=== PATIENT | female | born 1965 | race Hispanic/Latino ===

== ENCOUNTER → 2019-06-05 | Day surgery (SDC) | payer OTHER ==
[2019-06-04 11:49] LABS: BASOPHILS % 0.6 % (0.0-1.0); EOSINOPHILS # (AUTO) 0.2 (0.0-0.4); EOSINOPHILS % 3.1 % (0.0-6.0); HEMATOCRIT 26.6 % (34.2-44.1); LYMPHOCYTES # (AUTO) 1.6 (1.0-3.2); LYMPHOCYTES % 21.6 % (18.0-39.1); MEAN CORPUSCULAR HEMOGLOBIN 19.2 pg (28-32); MEAN CORPUSCULAR HGB CONC 26.3 g/dL (31-35); MEAN CORPUSCULAR VOLUME 73.1 fL (81-99); MONOCYTES # (AUTO) 0.4 (0.2-0.8); MONOCYTES % 5.7 % (4.4-11.3); NEUTROPHILS # (AUTO) 4.9 (2.1-6.9); NEUTROPHILS % 68.4 % (38.7-80.0); PLATELET COUNT 344 x10e3/uL (140-360); RED BLOOD COUNT 3.64 x10e6/uL (3.6-5.1); RED CELL DISTRIBUTION WIDTH 25.2 % (11.7-14.4)
[2019-06-04 13:12] LABS: HYPOCHROMASIA SLIGHT; RBC MORPHOLOGY COMMENT ABNORMAL
[~2019-06-05] MED LIST: FENTANYL CITRATE/PF 100MCG/2 ML INJ ONE; HYOSCYAMINE 0.125 MG TAB ONE; IRON PO; MIDAZOLAM HCL 2 MG/2 ML VIAL ONE; PROPOFOL IV EMULSION 10 MG/ML 50 ML VIAL ONE; SIMETHICONE 40 MG/0.6 ML BTL ONE
--- OUTSIDE RECORDS SUMMARY | 2019-06-05 05:59 | XMS REPORT ---
Author Author [facility] Address Unknown Phone Unavailable Care Team Providers Care Director Of Quantitative Research Name Role Phone Unavailable Unavailable Payers Payer Name Policy Type Policy Number Effective Date Expiration Date Problems This patient has no known problems. Allergies, Adverse Reactions, Alerts Allergy Name Allergy Type Status Severity Reaction(s) Onset Date Inactive Date Treating Clinician Comments vancomycin DA Active SV 2014-05-12 00:00:00 Medications This patient has no known medications. Results Test Description Test Time Test Comments Text Results Atomic Results Result Comments CBC W/AUTO DIFF 2019-05-27 07:52:00 WHITE BLOOD CELL (test code=WBC) 7.8 K/mm3 4.5-12.5 RED BLOOD CELL (test code=RBC) 3.77 mill/mm3 3.7-5.2 HEMOGLOBIN (test code=HGB) 7.3 gram/dL 11.5-15.5 HEMATOCRIT (test code=HCT) 27.1 % 36.0-46.0 MEAN CELL VOLUME (test code=MCV) 71.9 fL 80-98 MEAN CELL HGB (test code=MCH) 19.4 picogram 27.0-33.0 MEAN CELL HGB CONCETRATION (test code=MCHC) 26.9 gram/dL 33.0-36.0 RED CELL DISTRIBUTION WIDTH (test code=RDW) 23.9 % 11.6-16.2 RED CELL DISTRIBUTION WIDTH SD (test code=RDW-SD) 61.3 fL 37.0-51.0 PLATELET COUNT (test code=PLT) 451 K/mm3 150-450 RESULT VERIFIED BY REPEAT ANALYSIS MEAN PLATELET VOLUME (test code=MPV) 8.6 fL 6.7-11.0 NEUTROPHIL % (test code=NT%) 70.2 % 39.0-69.0 IMMATURE GRANULOCYTE % (test code=IG%) 0.4 % 0.0-5.0 LYMPHOCYTE % (test code=LY%) 19.9 % 25.0-55.0 MONOCYTE % (test code=MO%) 5.9 % 0.0-10.0 EOSINOPHIL % (test code=EO%) 3.0 % 0.0-5.0 BASOPHIL % (test code=BA%) 0.6 % 0.0-1.0 NUCLEATED RBC % (test code=NRBC%) 0.5 % 0-0 NEUTROPHIL # (test code=NT#) 5.44 K/mm3 1.8-7.7 IMMATURE GRANULOCYTE # (test code=IG#) 0.03 x10 3/uL 0-0.03 LYMPHOCYTE # (test code=LY#) 1.54 K/mm3 1.0-5.0 MONOCYTE # (test code=MO#) 0.46 K/mm3 0-0.8 EOSINOPHIL # (test code=EO#) 0.23 K/mm3 0.0-0.5 BASOPHIL # (test code=BA#) 0.05 K/mm3 0.0-0.2 NUCLEATED RBC # (test code=NRBC#) 0.04 K/mm3 0.0-0.1 MANUAL DIFF REQUIRED (test code=MDIFF) NO, ONLY SCAN NEEDED DIFFERENTIAL [id number] 07:52:00* Test Item Value Reference Range Comments STAIN ACCEPTABILITY (test code=STN ACCEPTABLE) STAIN ACCEPTABLE POLYCHROMASIA (test code=POLC) 1+ POIKILOCYTOSIS (test code=POIK) 1+ ANISOCYTOSIS (test code=ANISO) 3+ MICROCYTOSIS (test code=MICR) 3+ TARGET CELLS (test code=TGT) 1+ TEAR DROP CELLS (test code=TEAR) 1+ ELLIPTOCYTES (test code=ELL) 1+ PLATELET ESTIMATE (test code=PLTEST) INCREASED PLATELET MORPHOLOGY (test code=PLTMORPH) NORMAL CBC W/AUTO [id number] 07:24:00* Test Item Value Reference Range Comments WHITE BLOOD CELL (test code=WBC) 7.8 K/mm3 4.5-12.5 RED BLOOD CELL (test code=RBC) 3.77 mill/mm3 3.7-5.2 HEMOGLOBIN (test code=HGB) 7.3 gram/dL 11.5-15.5 HEMATOCRIT (test code=HCT) 27.1 % 36.0-46.0 MEAN CELL VOLUME (test code=MCV) 71.9 fL 80-98 MEAN CELL HGB (test code=MCH) 19.4 picogram 27.0-33.0 MEAN CELL HGB CONCETRATION (test code=MCHC) 26.9 gram/dL 33.0-36.0 RED CELL DISTRIBUTION WIDTH (test code=RDW) 23.9 % 11.6-16.2 RED CELL DISTRIBUTION WIDTH SD (test code=RDW-SD) 61.3 fL 37.0-51.0 PLATELET COUNT (test code=PLT) 451 K/mm3 150-450 RESULT VERIFIED BY REPEAT ANALYSIS MEAN PLATELET VOLUME (test code=MPV) 8.6 fL 6.7-11.0 NEUTROPHIL % (test code=NT%) 70.2 % 39.0-69.0 IMMATURE GRANULOCYTE % (test code=IG%) 0.4 % 0.0-5.0 LYMPHOCYTE % (test code=LY%) 19.9 % 25.0-55.0 MONOCYTE % (test code=MO%) 5.9 % 0.0-10.0 EOSINOPHIL % (test code=EO%) 3.0 % 0.0-5.0 BASOPHIL % (test code=BA%) 0.6 % 0.0-1.0 NUCLEATED RBC % (test code=NRBC%) 0.5 % 0-0 NEUTROPHIL # (test code=NT#) 5.44 K/mm3 1.8-7.7 IMMATURE GRANULOCYTE # (test code=IG#) 0.03 x10 3/uL 0-0.03 LYMPHOCYTE # (test code=LY#) 1.54 K/mm3 1.0-5.0 MONOCYTE # (test code=MO#) 0.46 K/mm3 0-0.8 EOSINOPHIL # (test code=EO#) 0.23 K/mm3 0.0-0.5 BASOPHIL # (test code=BA#) 0.05 K/mm3 0.0-0.2 NUCLEATED RBC # (test code=NRBC#) 0.04 K/mm3 0.0-0.1 MANUAL DIFF REQUIRED (test code=MDIFF) NO, ONLY SCAN NEEDED DIFFERENTIAL [id number] 07:24:00* Test Item Value Reference Range Comments STAIN ACCEPTABILITY (test code=STN ACCEPTABLE) MORPHOLOGY COMMENT (test code=MOC) PLATELET ESTIMATE (test code=PLTEST) PLATELET MORPHOLOGY (test code=PLTMORPH) CBC W/AUTO [id number] 07:19:00* Test Item Value Reference Range Comments WHITE BLOOD CELL (test code=WBC) 7.8 K/mm3 4.5-12.5 RED BLOOD CELL (test code=RBC) 3.77 mill/mm3 3.7-5.2 HEMOGLOBIN (test code=HGB) 7.3 gram/dL 11.5-15.5 HEMATOCRIT (test code=HCT) 27.1 % 36.0-46.0 MEAN CELL VOLUME (test code=MCV) 71.9 fL 80-98 MEAN CELL HGB (test code=MCH) 19.4 picogram 27.0-33.0 MEAN CELL HGB CONCETRATION (test code=MCHC) 26.9 gram/dL 33.0-36.0 RED CELL DISTRIBUTION WIDTH (test code=RDW) 23.9 % 11.6-16.2 RED CELL DISTRIBUTION WIDTH SD (test code=RDW-SD) 61.3 fL 37.0-51.0 PLATELET COUNT (test code=PLT) 451 K/mm3 150-450 RESULT VERIFIED BY REPEAT ANALYSIS MEAN PLATELET VOLUME (test code=MPV) 8.6 fL 6.7-11.0 NEUTROPHIL % (test code=NT%) 70.2 % 39.0-69.0 IMMATURE GRANULOCYTE % (test code=IG%) 0.4 % 0.0-5.0 LYMPHOCYTE % (test code=LY%) 19.9 % 25.0-55.0 MONOCYTE % (test code=MO%) 5.9 % 0.0-10.0 EOSINOPHIL % (test code=EO%) 3.0 % 0.0-5.0 BASOPHIL % (test code=BA%) 0.6 % 0.0-1.0 NUCLEATED RBC % (test code=NRBC%) 0.5 % 0-0 NEUTROPHIL # (test code=NT#) 5.44 K/mm3 1.8-7.7 IMMATURE GRANULOCYTE # (test code=IG#) 0.03 x10 3/uL 0-0.03 LYMPHOCYTE # (test code=LY#) 1.54 K/mm3 1.0-5.0 MONOCYTE # (test code=MO#) 0.46 K/mm3 0-0.8 EOSINOPHIL # (test code=EO#) 0.23 K/mm3 0.0-0.5 BASOPHIL # (test code=BA#) 0.05 K/mm3 0.0-0.2 NUCLEATED RBC # (test code=NRBC#) 0.04 K/mm3 0.0-0.1 MANUAL DIFF REQUIRED (test code=MDIFF) NO, ONLY SCAN NEEDED DIFFERENTIAL [id number] 07:19:00* Test Item Value Reference Range Comments STAIN ACCEPTABILITY (test code=STN ACCEPTABLE) CABOT RINGS (test code=CAB) MORPHOLOGY COMMENT (test code=MOC) PLATELET ESTIMATE (test code=PLTEST) PLATELET MORPHOLOGY (test code=PLTMORPH) CBC W/AUTO [id number] 07:19:00* Test Item Value Reference Range Comments WHITE BLOOD CELL (test code=WBC) 7.8 K/mm3 4.5-12.5 RED BLOOD CELL (test code=RBC) 3.77 mill/mm3 3.7-5.2 HEMOGLOBIN (test code=HGB) 7.3 gram/dL 11.5-15.5 HEMATOCRIT (test code=HCT) 27.1 % 36.0-46.0 MEAN CELL VOLUME (test code=MCV) 71.9 fL 80-98 MEAN CELL HGB (test code=MCH) 19.4 picogram 27.0-33.0 MEAN CELL HGB CONCETRATION (test code=MCHC) 26.9 gram/dL 33.0-36.0 RED CELL DISTRIBUTION WIDTH (test code=RDW) 23.9 % 11.6-16.2 RED CELL DISTRIBUTION WIDTH SD (test code=RDW-SD) 61.3 fL 37.0-51.0 PLATELET COUNT (test code=PLT) 451 K/mm3 150-450 RESULT VERIFIED BY REPEAT ANALYSIS MEAN PLATELET VOLUME (test code=MPV) 8.6 fL 6.7-11.0 NEUTROPHIL % (test code=NT%) 70.2 % 39.0-69.0 IMMATURE GRANULOCYTE % (test code=IG%) 0.4 % 0.0-5.0 LYMPHOCYTE % (test code=LY%) 19.9 % 25.0-55.0 MONOCYTE % (test code=MO%) 5.9 % 0.0-10.0 EOSINOPHIL % (test code=EO%) 3.0 % 0.0-5.0 BASOPHIL % (test code=BA%) 0.6 % 0.0-1.0 NUCLEATED RBC % (test code=NRBC%) 0.5 % 0-0 NEUTROPHIL # (test code=NT#) 5.44 K/mm3 1.8-7.7 IMMATURE GRANULOCYTE # (test code=IG#) 0.03 x10 3/uL 0-0.03 LYMPHOCYTE # (test code=LY#) 1.54 K/mm3 1.0-5.0 MONOCYTE # (test code=MO#) 0.46 K/mm3 0-0.8 EOSINOPHIL # (test code=EO#) 0.23 K/mm3 0.0-0.5 BASOPHIL # (test code=BA#) 0.05 K/mm3 0.0-0.2 NUCLEATED RBC # (test code=NRBC#) 0.04 K/mm3 0.0-0.1 MANUAL DIFF REQUIRED (test code=MDIFF) NO, ONLY SCAN NEEDED DIFFERENTIAL [id number] 07:19:00* Test Item Value Reference Range Comments STAIN ACCEPTABILITY (test code=STN ACCEPTABLE) MORPHOLOGY COMMENT (test code=MOC) PLATELET ESTIMATE (test code=PLTEST) PLATELET MORPHOLOGY (test code=PLTMORPH) CBC W/AUTO [id number] 07:18:00* Test Item Value Reference Range Comments WHITE BLOOD CELL (test code=WBC) 7.8 K/mm3 4.5-12.5 RED BLOOD CELL (test code=RBC) 3.77 mill/mm3 3.7-5.2 HEMOGLOBIN (test code=HGB) 7.3 gram/dL 11.5-15.5 HEMATOCRIT (test code=HCT) 27.1 % 36.0-46.0 MEAN CELL VOLUME (test code=MCV) 71.9 fL 80-98 MEAN CELL HGB (test code=MCH) 19.4 picogram 27.0-33.0 MEAN CELL HGB CONCETRATION (test code=MCHC) 26.9 gram/dL 33.0-36.0 RED CELL DISTRIBUTION WIDTH (test code=RDW) 23.9 % 11.6-16.2 RED CELL DISTRIBUTION WIDTH SD (test code=RDW-SD) 61.3 fL 37.0-51.0 PLATELET COUNT (test code=PLT) 451 K/mm3 150-450 RESULT VERIFIED BY REPEAT ANALYSIS MEAN PLATELET VOLUME (test code=MPV) 8.6 fL 6.7-11.0 NEUTROPHIL % (test code=NT%) 70.2 % 39.0-69.0 IMMATURE GRANULOCYTE % (test code=IG%) 0.4 % 0.0-5.0 LYMPHOCYTE % (test code=LY%) 19.9 % 25.0-55.0 MONOCYTE % (test code=MO%) 5.9 % 0.0-10.0 EOSINOPHIL % (test code=EO%) 3.0 % 0.0-5.0 BASOPHIL % (test code=BA%) 0.6 % 0.0-1.0 NUCLEATED RBC % (test code=NRBC%) 0.5 % 0-0 NEUTROPHIL # (test code=NT#) 5.44 K/mm3 1.8-7.7 IMMATURE GRANULOCYTE # (test code=IG#) 0.03 x10 3/uL 0-0.03 LYMPHOCYTE # (test code=LY#) 1.54 K/mm3 1.0-5.0 MONOCYTE # (test code=MO#) 0.46 K/mm3 0-0.8 EOSINOPHIL # (test code=EO#) 0.23 K/mm3 0.0-0.5 BASOPHIL # (test code=BA#) 0.05 K/mm3 0.0-0.2 NUCLEATED RBC # (test code=NRBC#) 0.04 K/mm3 0.0-0.1 MANUAL DIFF REQUIRED (test code=MDIFF) NO, ONLY SCAN NEEDED DIFFERENTIAL [id number] 07:18:00* Test Item Value Reference Range Comments STAIN ACCEPTABILITY (test code=STN ACCEPTABLE) CABOT RINGS (test code=CAB) MORPHOLOGY COMMENT (test code=MOC) PLATELET ESTIMATE (test code=PLTEST) PLATELET MORPHOLOGY (test code=PLTMORPH) FE W/TOTAL IRON BINDING [id number] 23:46:00* Test Item Value Reference Range Comments SERUM IRON (test code=IRON) 17 ug/dL 50-175 TOTAL IRON BINDING CAPACITY (test code=TIBC) 526 mcg/dL 250-450 IRON SATURATION (test code=FESAT) 3.23 % 13-45 VITAMIN [id number] 23:46:00* Test Item Value Reference Range Comments VITAMIN B12 (test code=VITB12) 371 pg/mL 193-986 FOLIC [id number] 23:46:00* Test Item Value Reference Range Comments FOLIC ACID (test code=FOL) 16.0 ng/mL 3.10-17.50 RETICULOCYTE [id number] 23:44:00* Test Item Value Reference Range Comments RETICULOCYTE COUNT (test code=RETICT) 3.0 % 0.5-2.0 RETIC COUNT ABSOLUTE (test code=RET#) 0.101 mill/mm3 0.016-0.095 IMMATURE RETICULOCYTE FRACTION (test code=IRF) 28.5 % 3.0-15.9 Values above normal range indicate an increase in RBCcellular response from bone marrow. RETICULOCYTE HGB EQUIVALENT (test code=RETHE) 13.8 pg 28.2-35.7 RET-He is a direct estimate of recent functionalavailability of iron in the cell, therefore, decreasedRET-He is indicative of iron deficiency. PROTHROMBIN [id number] 18:59:00* Test Item Value Reference Range Comments PROTHROMBIN TIME PATIENT (test code=PTP) 12.7 seconds 9.0-14.0 INTERNATIONAL NORMAL RATIO (test code=INR) 1.1 0.8-1.2 The therapeutic range for oral anticoagulant therapy formost indications is an international normalized ratio (INR)of between 2.0 and 3.0. The recommended therapeutic INRrange for various clinical situations is listed below: Clinical Situation INR range Pulmonary e mbolism treatment (2.0-3.0)Venous thrombosis treatmentVenous thrombosis prophylaxis (high risk surgery)Prevention of systemic embolism from: Acute myocardial infarction Valvular heart disease Atrial fibrillation Mechanical prosthetic heart valves (2.5-3.5) IS PATIENT ON ANTICOAGULANTS? NHEPATIC FUNCTION [id number] 18:44:00* Test Item Value Reference Range Comments TOTAL PROTEIN (test code=PROT) 6.8 gram/dL 6.4-8.2 ALBUMIN (test code=ALB) 3.4 g/dL 3.4-5.0 GLOBULIN (test code=GLOB) 3.4 gram/dL 2.7-4.2 ALBUMIN/GLOBULIN RATIO (test code=A/G) 1.0 0.75-1.50 BILIRUBIN TOTAL (test code=BILT) 0.60 mg/dL 0.0-1.0 BILIRUBIN DIRECT (test code=BILD) 0.18 mg/dL 0.0-0.20 SGOT/AST (test code=AST) 13 IUnit/L 15-37 SGPT/ALT (test code=ALT) 12 IUnit/L 12-78 ALKALINE PHOSPHATASE TOTAL (test code=ALKP) 79 IUnit/L 45-117 Note change in reference range due to change in reagent. BASIC METABOLIC [id number] 18:09:00* Test Item Value Reference Range Comments SODIUM (test code=NA) 142 mmol/L 136-145 POTASSIUM (test code=K) 4.1 mmol/L 3.5-5.1 CHLORIDE (test code=CL) 108.0 mmol/L 98-107 CARBON DIOXIDE (test code=CO2) 25.0 mmol/L 21-32 ANION GAP (test code=GAP) 13.1 10-20 GLUCOSE (test code=GLU) 120 mg/dL 74-106 BLOOD UREA NITROGEN (test code=BUN) 14 mg/dL 7-18 GLOMERULAR FILTRATION RATE (test code=GFR) > 60 mL/min >=60 Estimated GFR by using Modified MDRD formula.Chronic kidney disease is defined as either kidney damageor GFR <60 mL/min/1.73 m2 for >3 months. CREATININE (test code=CREAT) 0.60 mg/dL 0.55-1.02 Note change in reference range due to change in reagent. BUN/CREATININE RATIO (test code=BUN/CREA) 25.2 10-20 CALCIUM (test code=CA) 8.3 mg/dL 8.5-10.1 CBC W/O [id number] 17:43:00* Test Item Value Reference Range Comments WHITE BLOOD CELL (test code=WBC) 9.3 K/mm3 4.5-12.5 RED BLOOD CELL (test code=RBC) 3.34 mill/mm3 3.7-5.2 HEMOGLOBIN (test code=HGB) 5.5 gram/dL 11.5-15.5 HEMATOCRIT (test code=HCT) 22.5 % 36.0-46.0 MEAN CELL VOLUME (test code=MCV) 67.4 fL 80-98 MEAN CELL HGB (test code=MCH) 16.5 picogram 27.0-33.0 MEAN CELL HGB CONCETRATION (test code=MCHC) 24.4 gram/dL 33.0-36.0 RED CELL DISTRIBUTION WIDTH (test code=RDW) 23.1 % 11.6-16.2 PLATELET COUNT (test code=PLT) 504 K/mm3 150-450 MEAN PLATELET VOLUME (test code=MPV) 8.5 fL 6.7-11.0 BASIC METABOLIC [id number] 17:43:00* Test Item Value Reference Range Comments SODIUM (test code=NA) 142 mmol/L 136-145 POTASSIUM (test code=K) 4.1 mmol/L 3.5-5.1 CHLORIDE (test code=CL) 108.0 mmol/L 98-107 CARBON DIOXIDE (test code=CO2) mmol/L 21-32 ANION GAP (test code=GAP) 10-20 GLUCOSE (test code=GLU) mg/dL 74-106 BLOOD UREA NITROGEN (test code=BUN) mg/dL 7-18 GLOMERULAR FILTRATION RATE (test code=GFR) mL/min >=60 CREATININE (test code=CREAT) mg/dL 0.55-1.02 BUN/CREATININE RATIO (test code=BUN/CREA) 10-20 CALCIUM (test code=CA) mg/dL 8.5-10.1 CBC W/AUTO [id number] 08:54:00* Test Item Value Reference Range Comments WHITE BLOOD CELL (test code=WBC) 8.5 K/mm3 4.5-12.5 RED BLOOD CELL (test code=RBC) 3.82 mill/mm3 3.7-5.2 HEMOGLOBIN (test code=HGB) 6.9 gram/dL 11.5-15.5 HEMATOCRIT (test code=HCT) 26.3 % 36.0-46.0 MEAN CELL VOLUME (test code=MCV) 68.8 fL 80-98 RESULT VERIFIED BY REPEAT ANALYSIS MEAN CELL HGB (test code=MCH) 18.1 picogram 27.0-33.0 MEAN CELL HGB CONCETRATION (test code=MCHC) 26.2 gram/dL 33.0-36.0 RED CELL DISTRIBUTION WIDTH (test code=RDW) 26.4 % 11.6-16.2 RED CELL DISTRIBUTION WIDTH SD (test code=RDW-SD) 62.8 fL 37.0-51.0 PLATELET COUNT (test code=PLT) 401 K/mm3 150-450 MEAN PLATELET VOLUME (test code=MPV) 8.8 fL 6.7-11.0 NEUTROPHIL % (test code=NT%) 71.5 % 39.0-69.0 IMMATURE GRANULOCYTE % (test code=IG%) 0.7 % 0.0-5.0 LYMPHOCYTE % (test code=LY%) 19.3 % 25.0-55.0 MONOCYTE % (test code=MO%) 5.8 % 0.0-10.0 EOSINOPHIL % (test code=EO%) 2.1 % 0.0-5.0 BASOPHIL % (test code=BA%) 0.6 % 0.0-1.0 NUCLEATED RBC % (test code=NRBC%) 0.4 % 0-0 NEUTROPHIL # (test code=NT#) 6.07 K/mm3 1.8-7.7 IMMATURE GRANULOCYTE # (test code=IG#) 0.06 x10 3/uL 0-0.03 LYMPHOCYTE # (test code=LY#) 1.64 K/mm3 1.0-5.0 MONOCYTE # (test code=MO#) 0.49 K/mm3 0-0.8 EOSINOPHIL # (test code=EO#) 0.18 K/mm3 0.0-0.5 BASOPHIL # (test code=BA#) 0.05 K/mm3 0.0-0.2 NUCLEATED RBC # (test code=NRBC#) 0.03 K/mm3 0.0-0.1 MANUAL DIFF REQUIRED (test code=MDIFF) NO, ONLY SCAN NEEDED DIFFERENTIAL [id number] 08:54:00* Test Item Value Reference Range Comments STAIN ACCEPTABILITY (test code=STN ACCEPTABLE) STAIN ACCEPTABLE POLYCHROMASIA (test code=POLC) 3+ POIKILOCYTOSIS (test code=POIK) 1+ ANISOCYTOSIS (test code=ANISO) 2+ MICROCYTOSIS (test code=MICR) 2+ PLATELET ESTIMATE (test code=PLTEST) ADEQUATE PLATELET MORPHOLOGY (test code=PLTMORPH) SIZE VARIABLE CBC W/AUTO [id number] 08:23:00* Test Item Value Reference Range Comments WHITE BLOOD CELL (test code=WBC) 8.5 K/mm3 4.5-12.5 RED BLOOD CELL (test code=RBC) 3.82 mill/mm3 3.7-5.2 HEMOGLOBIN (test code=HGB) 6.9 gram/dL 11.5-15.5 HEMATOCRIT (test code=HCT) 26.3 % 36.0-46.0 MEAN CELL VOLUME (test code=MCV) 68.8 fL 80-98 RESULT VERIFIED BY REPEAT ANALYSIS MEAN CELL HGB (test code=MCH) 18.1 picogram 27.0-33.0 MEAN CELL HGB CONCETRATION (test code=MCHC) 26.2 gram/dL 33.0-36.0 RED CELL DISTRIBUTION WIDTH (test code=RDW) 26.4 % 11.6-16.2 RED CELL DISTRIBUTION WIDTH SD (test code=RDW-SD) 62.8 fL 37.0-51.0 PLATELET COUNT (test code=PLT) 401 K/mm3 150-450 MEAN PLATELET VOLUME (test code=MPV) 8.8 fL 6.7-11.0 NEUTROPHIL % (test code=NT%) 71.5 % 39.0-69.0 IMMATURE GRANULOCYTE % (test code=IG%) 0.7 % 0.0-5.0 LYMPHOCYTE % (test code=LY%) 19.3 % 25.0-55.0 MONOCYTE % (test code=MO%) 5.8 % 0.0-10.0 EOSINOPHIL % (test code=EO%) 2.1 % 0.0-5.0 BASOPHIL % (test code=BA%) 0.6 % 0.0-1.0 NUCLEATED RBC % (test code=NRBC%) 0.4 % 0-0 NEUTROPHIL # (test code=NT#) 6.07 K/mm3 1.8-7.7 IMMATURE GRANULOCYTE # (test code=IG#) 0.06 x10 3/uL 0-0.03 LYMPHOCYTE # (test code=LY#) 1.64 K/mm3 1.0-5.0 MONOCYTE # (test code=MO#) 0.49 K/mm3 0-0.8 EOSINOPHIL # (test code=EO#) 0.18 K/mm3 0.0-0.5 BASOPHIL # (test code=BA#) 0.05 K/mm3 0.0-0.2 NUCLEATED RBC # (test code=NRBC#) 0.03 K/mm3 0.0-0.1 MANUAL DIFF REQUIRED (test code=MDIFF) NO, ONLY SCAN NEEDED DIFFERENTIAL [id number] 08:23:00* Test Item Value Reference Range Comments STAIN ACCEPTABILITY (test code=STN ACCEPTABLE) CABOT RINGS (test code=CAB) MORPHOLOGY COMMENT (test code=MOC) PLATELET ESTIMATE (test code=PLTEST) PLATELET MORPHOLOGY (test code=PLTMORPH) CBC W/AUTO [id number] 08:23:00* Test Item Value Reference Range Comments WHITE BLOOD CELL (test code=WBC) 8.5 K/mm3 4.5-12.5 RED BLOOD CELL (test code=RBC) 3.82 mill/mm3 3.7-5.2 HEMOGLOBIN (test code=HGB) 6.9 gram/dL 11.5-15.5 HEMATOCRIT (test code=HCT) 26.3 % 36.0-46.0 MEAN CELL VOLUME (test code=MCV) 68.8 fL 80-98 RESULT VERIFIED BY REPEAT ANALYSIS MEAN CELL HGB (test code=MCH) 18.1 picogram 27.0-33.0 MEAN CELL HGB CONCETRATION (test code=MCHC) 26.2 gram/dL 33.0-36.0 RED CELL DISTRIBUTION WIDTH (test code=RDW) 26.4 % 11.6-16.2 RED CELL DISTRIBUTION WIDTH SD (test code=RDW-SD) 62.8 fL 37.0-51.0 PLATELET COUNT (test code=PLT) 401 K/mm3 150-450 MEAN PLATELET VOLUME (test code=MPV) 8.8 fL 6.7-11.0 NEUTROPHIL % (test code=NT%) 71.5 % 39.0-69.0 IMMATURE GRANULOCYTE % (test code=IG%) 0.7 % 0.0-5.0 LYMPHOCYTE % (test code=LY%) 19.3 % 25.0-55.0 MONOCYTE % (test code=MO%) 5.8 % 0.0-10.0 EOSINOPHIL % (test code=EO%) 2.1 % 0.0-5.0 BASOPHIL % (test code=BA%) 0.6 % 0.0-1.0 NUCLEATED RBC % (test code=NRBC%) 0.4 % 0-0 NEUTROPHIL # (test code=NT#) 6.07 K/mm3 1.8-7.7 IMMATURE GRANULOCYTE # (test code=IG#) 0.06 x10 3/uL 0-0.03 LYMPHOCYTE # (test code=LY#) 1.64 K/mm3 1.0-5.0 MONOCYTE # (test code=MO#) 0.49 K/mm3 0-0.8 EOSINOPHIL # (test code=EO#) 0.18 K/mm3 0.0-0.5 BASOPHIL # (test code=BA#) 0.05 K/mm3 0.0-0.2 NUCLEATED RBC # (test code=NRBC#) 0.03 K/mm3 0.0-0.1 MANUAL DIFF REQUIRED (test code=MDIFF) NO, ONLY SCAN NEEDED DIFFERENTIAL [id number] 08:23:00* Test Item Value Reference Range Comments STAIN ACCEPTABILITY (test code=STN ACCEPTABLE) CABOT RINGS (test code=CAB) MORPHOLOGY COMMENT (test code=MOC) PLATELET ESTIMATE (test code=PLTEST) PLATELET MORPHOLOGY (test code=PLTMORPH) CBC W/AUTO [id number] 08:23:00* Test Item Value Reference Range Comments WHITE BLOOD CELL (test code=WBC) 8.5 K/mm3 4.5-12.5 RED BLOOD CELL (test code=RBC) 3.82 mill/mm3 3.7-5.2 HEMOGLOBIN (test code=HGB) 6.9 gram/dL 11.5-15.5 HEMATOCRIT (test code=HCT) 26.3 % 36.0-46.0 MEAN CELL VOLUME (test code=MCV) 68.8 fL 80-98 RESULT VERIFIED BY REPEAT ANALYSIS MEAN CELL HGB (test code=MCH) 18.1 picogram 27.0-33.0 MEAN CELL HGB CONCETRATION (test code=MCHC) 26.2 gram/dL 33.0-36.0 RED CELL DISTRIBUTION WIDTH (test code=RDW) 26.4 % 11.6-16.2 RED CELL DISTRIBUTION WIDTH SD (test code=RDW-SD) 62.8 fL 37.0-51.0 PLATELET COUNT (test code=PLT) 401 K/mm3 150-450 MEAN PLATELET VOLUME (test code=MPV) 8.8 fL 6.7-11.0 NEUTROPHIL % (test code=NT%) 71.5 % 39.0-69.0 IMMATURE GRANULOCYTE % (test code=IG%) 0.7 % 0.0-5.0 LYMPHOCYTE % (test code=LY%) 19.3 % 25.0-55.0 MONOCYTE % (test code=MO%) 5.8 % 0.0-10.0 EOSINOPHIL % (test code=EO%) 2.1 % 0.0-5.0 BASOPHIL % (test code=BA%) 0.6 % 0.0-1.0 NUCLEATED RBC % (test code=NRBC%) 0.4 % 0-0 NEUTROPHIL # (test code=NT#) 6.07 K/mm3 1.8-7.7 IMMATURE GRANULOCYTE # (test code=IG#) 0.06 x10 3/uL 0-0.03 LYMPHOCYTE # (test code=LY#) 1.64 K/mm3 1.0-5.0 MONOCYTE # (test code=MO#) 0.49 K/mm3 0-0.8 EOSINOPHIL # (test code=EO#) 0.18 K/mm3 0.0-0.5 BASOPHIL # (test code=BA#) 0.05 K/mm3 0.0-0.2 NUCLEATED RBC # (test code=NRBC#) 0.03 K/mm3 0.0-0.1 MANUAL DIFF REQUIRED (test code=MDIFF) NO, ONLY SCAN NEEDED DIFFERENTIAL [id number] 08:23:00* Test Item Value Reference Range Comments STAIN ACCEPTABILITY (test code=STN ACCEPTABLE) MORPHOLOGY COMMENT (test code=MOC) PLATELET ESTIMATE (test code=PLTEST) PLATELET MORPHOLOGY (test code=PLTMORPH) CBC W/AUTO [id number] 08:23:00* Test Item Value Reference Range Comments WHITE BLOOD CELL (test code=WBC) 8.5 K/mm3 4.5-12.5 RED BLOOD CELL (test code=RBC) 3.82 mill/mm3 3.7-5.2 HEMOGLOBIN (test code=HGB) 6.9 gram/dL 11.5-15.5 HEMATOCRIT (test code=HCT) 26.3 % 36.0-46.0 MEAN CELL VOLUME (test code=MCV) 68.8 fL 80-98 RESULT VERIFIED BY REPEAT ANALYSIS MEAN CELL HGB (test code=MCH) 18.1 picogram 27.0-33.0 MEAN CELL HGB CONCETRATION (test code=MCHC) 26.2 gram/dL 33.0-36.0 RED CELL DISTRIBUTION WIDTH (test code=RDW) 26.4 % 11.6-16.2 RED CELL DISTRIBUTION WIDTH SD (test code=RDW-SD) 62.8 fL 37.0-51.0 PLATELET COUNT (test code=PLT) 401 K/mm3 150-450 MEAN PLATELET VOLUME (test code=MPV) 8.8 fL 6.7-11.0 NEUTROPHIL % (test code=NT%) 71.5 % 39.0-69.0 IMMATURE GRANULOCYTE % (test code=IG%) 0.7 % 0.0-5.0 LYMPHOCYTE % (test code=LY%) 19.3 % 25.0-55.0 MONOCYTE % (test code=MO%) 5.8 % 0.0-10.0 EOSINOPHIL % (test code=EO%) 2.1 % 0.0-5.0 BASOPHIL % (test code=BA%) 0.6 % 0.0-1.0 NUCLEATED RBC % (test code=NRBC%) 0.4 % 0-0 NEUTROPHIL # (test code=NT#) 6.07 K/mm3 1.8-7.7 IMMATURE GRANULOCYTE # (test code=IG#) 0.06 x10 3/uL 0-0.03 LYMPHOCYTE # (test code=LY#) 1.64 K/mm3 1.0-5.0 MONOCYTE # (test code=MO#) 0.49 K/mm3 0-0.8 EOSINOPHIL # (test code=EO#) 0.18 K/mm3 0.0-0.5 BASOPHIL # (test code=BA#) 0.05 K/mm3 0.0-0.2 NUCLEATED RBC # (test code=NRBC#) 0.03 K/mm3 0.0-0.1 MANUAL DIFF REQUIRED (test code=MDIFF) NO, ONLY SCAN NEEDED DIFFERENTIAL [id number] 08:23:00* Test Item Value Reference Range Comments STAIN ACCEPTABILITY (test code=STN ACCEPTABLE) CABOT RINGS (test code=CAB) MORPHOLOGY COMMENT (test code=MOC) PLATELET ESTIMATE (test code=PLTEST) PLATELET MORPHOLOGY (test code=PLTMORPH) COMPREHENSIVE METABOLIC [id number] 03:27:00* Test Item Value Reference Range Comments SODIUM (test code=NA) 142 mmol/L 136-145 POTASSIUM (test code=K) 3.8 mmol/L 3.5-5.1 CHLORIDE (test code=CL) 109.0 mmol/L 98-107 CARBON DIOXIDE (test code=CO2) 23.0 mmol/L 21-32 ANION GAP (test code=GAP) 13.8 10-20 GLUCOSE (test code=GLU) 128 mg/dL 74-106 BLOOD UREA NITROGEN (test code=BUN) 12 mg/dL 7-18 GLOMERULAR FILTRATION RATE (test code=GFR) > 60 mL/min >=60 Estimated GFR by using Modified MDRD formula.Chronic kidney disease is defined as either kidney damageor GFR <60 mL/min/1.73 m2 for >3 months. CREATININE (test code=CREAT) 0.60 mg/dL 0.55-1.02 Note change in reference range due to change in reagent. BUN/CREATININE RATIO (test code=BUN/CREA) 21.5 10-20 TOTAL PROTEIN (test code=PROT) 6.2 gram/dL 6.4-8.2 ALBUMIN (test code=ALB) 2.7 g/dL 3.4-5.0 GLOBULIN (test code=GLOB) 3.5 gram/dL 2.7-4.2 ALBUMIN/GLOBULIN RATIO (test code=A/G) 0.8 0.75-1.50 CALCIUM (test code=CA) 8.3 mg/dL 8.5-10.1 BILIRUBIN TOTAL (test code=BILT) 0.60 mg/dL 0.0-1.0 SGOT/AST (test code=AST) 9 IUnit/L 15-37 SGPT/ALT (test code=ALT) 15 IUnit/L 12-78 ALKALINE PHOSPHATASE TOTAL (test code=ALKP) 72 IUnit/L 45-117 Note change in reference range due to change in reagent. COMPREHENSIVE METABOLIC [id number] 03:01:00* Test Item Value Reference Range Comments SODIUM (test code=NA) 142 mmol/L 136-145 POTASSIUM (test code=K) 3.8 mmol/L 3.5-5.1 CHLORIDE (test code=CL) 109.0 mmol/L 98-107 CARBON DIOXIDE (test code=CO2) mmol/L 21-32 ANION GAP (test code=GAP) 10-20 GLUCOSE (test code=GLU) mg/dL 74-106 BLOOD UREA NITROGEN (test code=BUN) mg/dL 7-18 GLOMERULAR FILTRATION RATE (test code=GFR) mL/min >=60 CREATININE (test code=CREAT) mg/dL 0.55-1.02 BUN/CREATININE RATIO (test code=BUN/CREA) 10-20 TOTAL PROTEIN (test code=PROT) gram/dL 6.4-8.2 ALBUMIN (test code=ALB) g/dL 3.4-5.0 GLOBULIN (test code=GLOB) gram/dL 2.7-4.2 ALBUMIN/GLOBULIN RATIO (test code=A/G) 0.75-1.50 CALCIUM (test code=CA) mg/dL 8.5-10.1 BILIRUBIN TOTAL (test code=BILT) mg/dL 0.0-1.0 SGOT/AST (test code=AST) IUnit/L 15-37 SGPT/ALT (test code=ALT) IUnit/L 12-78 ALKALINE PHOSPHATASE TOTAL (test code=ALKP) IUnit/L 45-117 HGB [id number] 02:38:00* Test Item Value Reference Range Comments HEMOGLOBIN (test code=HGB) 6.3 gram/dL 11.5-15.5 HEMATOCRIT (test code=HCT) 23.2 % 36.0-46.0 [id number] 15:54:00* Test Item Value Reference Range Comments FERRITIN (test code=FABIAN) 1 ng/mL 8-388 [id number] 15:43:00* Test Item Value Reference Range Comments GLUBED (test code=GLUBED) 115 mg/dL 74-106 Performed by certified grid casting machine operator helper at [facility] [id number] 12:28:00* Test Item Value Reference Range Comments TROPONIN-I (test code=TROPI) <0.015 ng/mL 0-0.045 BILCBC W/O [id number] 12:03:00* Test Item Value Reference Range Comments WHITE BLOOD CELL (test code=WBC) 8.2 K/mm3 4.5-12.5 RED BLOOD CELL (test code=RBC) 3.20 mill/mm3 3.7-5.2 HEMOGLOBIN (test code=HGB) 4.7 gram/dL 11.5-15.5 HEMATOCRIT (test code=HCT) 20.2 % 36.0-46.0 RESULT VERIFIED BY REPEAT ANALYSISCritical results verified and read back by Nurse? Y MEAN CELL VOLUME (test code=MCV) 63.1 fL 80-98 MEAN CELL HGB (test code=MCH) 14.7 picogram 27.0-33.0 MEAN CELL HGB CONCETRATION (test code=MCHC) 23.3 gram/dL 33.0-36.0 RED CELL DISTRIBUTION WIDTH (test code=RDW) 21.2 % 11.6-16.2 PLATELET COUNT (test code=PLT) 398 K/mm3 150-450 MEAN PLATELET VOLUME (test code=MPV) 9.2 fL 6.7-11.0 BASIC METABOLIC [id number] 11:58:00* Test Item Value Reference Range Comments SODIUM (test code=NA) 141 mmol/L 136-145 POTASSIUM (test code=K) 3.8 mmol/L 3.5-5.1 CHLORIDE (test code=CL) 109.0 mmol/L 98-107 CARBON DIOXIDE (test code=CO2) 26.0 mmol/L 21-32 ANION GAP (test code=GAP) 9.8 10-20 GLUCOSE (test code=GLU) 162 mg/dL 74-106 BLOOD UREA NITROGEN (test code=BUN) 12 mg/dL 7-18 GLOMERULAR FILTRATION RATE (test code=GFR) > 60 mL/min >=60 Estimated GFR by using Modified MDRD formula.Chronic kidney disease is defined as either kidney damageor GFR <60 mL/min/1.73 m2 for >3 months. CREATININE (test code=CREAT) 0.80 mg/dL 0.55-1.02 Note change in reference range due to change in reagent. BUN/CREATININE RATIO (test code=BUN/CREA) 15.0 10-20 CALCIUM (test code=CA) 8.1 mg/dL 8.5-10.1 BASIC METABOLIC [id number] 11:52:00* Test Item Value Reference Range Comments SODIUM (test code=NA) 141 mmol/L 136-145 POTASSIUM (test code=K) 3.8 mmol/L 3.5-5.1 CHLORIDE (test code=CL) 109.0 mmol/L 98-107 CARBON DIOXIDE (test code=CO2) mmol/L 21-32 ANION GAP (test code=GAP) 10-20 GLUCOSE (test code=GLU) mg/dL 74-106 BLOOD UREA NITROGEN (test code=BUN) mg/dL 7-18 GLOMERULAR FILTRATION RATE (test code=GFR) mL/min >=60 CREATININE (test code=CREAT) mg/dL 0.55-1.02 BUN/CREATININE RATIO (test code=BUN/CREA) 10-20 CALCIUM (test code=CA) mg/dL 8.5-10.1
[2019-06-05 09:15] VITALS: BP 124/75
--- NOTE | 2019-06-05 12:55 | Operative Report ---
DATE OF PROCEDURE: 06/05/2019 SURGEON: Jerzy Castro MD PROCEDURE: Colonoscopy with polypectomy and biopsies. INDICATIONS FOR COLONOSCOPY: Iron deficiency anemia. MEDICATIONS: The patient was done under MAC, please see anesthesiologist's note. PROCEDURE IN DETAIL: With the patient in left lateral decubitus position, the flexible fiberoptic Olympus colonoscope was inserted into the rectum with ease and advanced all the way to the cecum. The mucosa overlying the cecum appeared to be within normal limits. An approximately 6 mm polyp was removed per cold snare polypectomy from the ascending colon. One polyp was also removed per hot snare polypectomy from the transverse colon. So, the ascending was cold snared and the transverse were hot snared. Three polyps in the descending colon, two were removed per hot snare polypectomy and one polyp was hot biopsied. One polyp was removed per hot biopsy forceps from the sigmoid colon. An approximately 7 cm circumferential mass was noted in the rectum extending proximally from the anal verge. Biopsies were obtained from the mass. The scope was subsequently withdrawn and the patient tolerated the procedure well. IMPRESSION: 1. Ascending colon polyp removed per cold snare polypectomy. 2. Transverse colon polyp x1, hot snared. 3. Descending colon polyps x3, one hot biopsied and two hot snared. 4. Sigmoid colon polyp, hot biopsied. 5. Rectal mass, circumferential, extending approximately 7 cm proximally from the anal verge, biopsies obtained. PLAN: Follow up histology. The patient will need a CT scan of the abdomen and pelvis. General Surgical consult obtained with Dr. Mert Ruiz. Jerzy Castro MD [facility] [place]/[facility] [place] /[id number] cc: MD Mert Baltazar MD
== END | disposition home or self-care (01) ==
LOC: OR 05:57
PROVIDERS: ATTEND Internal Medicine Gastroenterology
DX: D50.9 Iron deficiency anemia, unspecified (principal); D12.2 Benign neoplasm of ascending colon; D12.4 Benign neoplasm of descending colon; D12.3 Benign neoplasm of transverse colon; K63.5 Polyp of colon; R85.613 High grade squamous intraepithelial lesion on cytologic smear of anus (HGSIL); Z01.810 Encounter for preprocedural cardiovascular examination; Z01.812 Encounter for preprocedural laboratory examination; I10 Essential (primary) hypertension; E11.9 Type 2 diabetes mellitus without complications
CPT/HCPCS: 36415 ×2; 45380; 45384; 45385; 82948; 85025; 93005; J2250; J2704; J3010; 45378

== ENCOUNTER → 2019-08-07 | Day surgery (SDC) | payer OTHER ==
[~2019-08-07] MED LIST changes: +ALIGN4 MG PO; +DIPHENIA PO; -FENTANYL CITRATE/PF 100MCG/2 ML INJ ONE; -MIDAZOLAM HCL 2 MG/2 ML VIAL ONE; -SIMETHICONE 40 MG/0.6 ML BTL ONE
[2019-08-07 18:25] VITALS: BP 111/57
--- NOTE | 2019-08-08 00:24 | Operative Report ---
DATE OF PROCEDURE: 08/07/2019 SURGEON: Jerzy Castro MD INDICATIONS FOR PROCEDURE: History of rectal cancer. The patient is in for a flexible sigmoidoscopy and to obtain additional biopsies. MEDICATIONS: The patient was done under MAC, please see anesthesiologist's note. PROCEDURE IN DETAIL: With the patient in left lateral decubitus position, a flexible fiberoptic Olympus colonoscope was inserted into the rectum with ease and advanced into the rectosigmoid area. The previously described rectal mass was again noted. It extended from just above the dentate line to approximately 9 cm proximally. Multiple biopsies were obtained. The scope was subsequently withdrawn, the patient tolerated procedure well. IMPRESSION: Previously described circumferential rectal mass, which was extensively biopsied. The patient tolerated the procedure well. PLAN: Followup histology. Jerzy Castro MD [facility] [place]/MODL /[id number] cc: MD Mert Baltazar MD Mohamed M Haq, MD
== END | disposition home or self-care (01) ==
LOC: OR 14:00
PROVIDERS: ATTEND Internal Medicine Gastroenterology
DX: C20 Malignant neoplasm of rectum (principal); E66.01 Morbid (severe) obesity due to excess calories; I10 Essential (primary) hypertension; E11.9 Type 2 diabetes mellitus without complications; Z88.1 Allergy status to other antibiotic agents
CPT/HCPCS: 36415; 45380; 82948

== ENCOUNTER → 2019-08-20 | Outpatient (CLI) | payer OTHER ==
[~2019-08-20] MED LIST changes: +DIATRIZOATE MEGL/DIATRIZOA SOD 30 ML BTL PO ONE; -HYOSCYAMINE 0.125 MG TAB ONE; +IOPAMIDOL 370 MG/ML 200 ML INFUS..BTL INJ ONE; -PROPOFOL IV EMULSION 10 MG/ML 50 ML VIAL ONE; +SODIUM CHLORIDE 0.9% 50ML 50 ML ONE
[2019-08-20 15:23] LABS: BLOOD UREA NITROGEN 12 mg/dL (7-26); BUN/CREATININE RATIO 17 (6-25); CREATININE, SERUM 0.72 mg/dL (0.57-1.11); EST GLOMERULAR FILTRATION RATE > 60 ML/MIN (60-)
--- NOTE | 2019-08-20 17:13 | Diagnostic Imaging Report ---
CT of the chest, abdomen and pelvis, with contrast. History: Rectal cancer. Comparison: None available. Technique: Multidetector CT scanning of the abdomen and pelvis was performed from the lung apices to the inferior pubic rami after intravenous and oral administration of contrast. Coronal and sagittal multiplanar reformations were obtained. RADIATION DOSE: Total DLP: 1009.17 mGy*cm Dose modulation, iterative reconstruction, and/or weight based adjustment of the mA/kV was utilized to reduce the radiation dose to as low as reasonably achievable. FINDINGS: The thyroid and remaining visualized structures within the base of the neck demonstrate no significant abnormalities. The thoracic aorta is normal course and caliber. The heart is not enlarged. There is no abnormal axillary, mediastinal, or hilar lymph node enlargement. The trachea and proximal airways are patent. Examination of the lungs demonstrates subtle mosaic attenuation which can be seen in the setting of air trapping or edema. There is no evidence for consolidation, pneumothorax, mass, suspicious nodule, or pleural effusion. The liver is normal in size and attenuation. Multiple surgical clips are noted within the right upper quadrant likely from prior cholecystectomy. There is mild localized intrahepatic biliary ductal dilatation noted within the posterior right hepatic lobe upstream from a surgical clip. No focal hepatic lesion is identified. There is no extrahepatic biliary ductal dilatation. The stomach, spleen, pancreas, and bilateral adrenal glands are unremarkable. The kidneys are normal in size and location and enhance symmetrically. There is a 2.1 x 1.8 cm cyst identified arising off the superior/mid left kidney. There is no evidence for hydronephrosis. The ureters are normal course and caliber. The urinary bladder is not distended for evaluation but appears grossly unremarkable. The uterus and adnexa are grossly unremarkable. The abdominal aorta is normal in course and caliber. The IVC is unremarkable. There is irregular wall thickening of the rectum, likely reflecting patient's known rectal cancer. There are multiple enlarged lymph nodes identified within the adjacent mesorectal fat as well as beyond the mesorectal fat within pelvic sidewall bilaterally. A left pelvic sidewall lymph node measures 2.3 x 2.3 cm. Additionally, there is left inguinal lymphadenopathy with a conglomerate of nodes measuring 1.9 x 4.3 cm. The remaining visualized loops of small and large bowel demonstrate no evidence of obstruction or inflammation. There is no ascites or intraperitoneal free air. A tiny fat-containing abdominal hernia is noted. There is grade 2-3 anterolisthesis of L5 on S1 with bilateral spondylolysis at L5. The osseous structures otherwise demonstrate no evidence for acute fracture or destructive process. The extrathoracic and extraperitoneal soft tissues are unremarkable. IMPRESSION: Irregular wall thickening noted of the rectum likely reflecting the patient's known rectal cancer. Pelvic sidewall and left inguinal lymphadenopathy noted concerning for metastatic disease. Mild localized intrahepatic biliary ductal dilatation noted within the posterior right hepatic lobe upstream from a suspected cholecystectomy clip, likely reflecting postsurgical change. No focal hepatic lesion/mass identified. No evidence for metastatic disease within the chest. Signed by: Dr. Pedrito Araiza MD on 08/20/2019 5:10 PM
== END ==
LOC: CT 14:37
PROVIDERS: ATTEND Internal Medicine Hematology & Oncology
DX: C20 Malignant neoplasm of rectum (principal)
CPT/HCPCS: 36415; 71260; 74177; 82565; 84520; Q9967

== ENCOUNTER → 2019-11-13 | Outpatient (CLI) | payer OTHER ==
[2019-11-13 09:03] LABS: BLOOD UREA NITROGEN 11 mg/dL (7-26); BUN/CREATININE RATIO 18 (6-25); CREATININE, SERUM 0.62 mg/dL (0.57-1.11); EST GLOMERULAR FILTRATION RATE > 60 ML/MIN (60-)
--- NOTE | 2019-11-13 15:09 | Diagnostic Imaging Report ---
EXAM: CT Abdomen and Pelvis WITH intravenous contrast INDICATION: Rectal cancer COMPARISON: CT abdomen and pelvis of 08/20/2019 TECHNIQUE: Abdomen and pelvis were scanned utilizing a multidetector helical scanner from the lung base to the pubic symphysis after administration of IV contrast. Coronal and sagittal reformations were obtained. Routine protocol was performed. Scan was performed during portal venous phase. IV CONTRAST: 100mL of Isovue 370 ORAL CONTRAST: Water RADIATION DOSE: Total DLP: 753 mGy*cm Dose modulation, iterative reconstruction, and/or weight based adjustment of the mA/kV was utilized to reduce the radiation dose to as low as reasonably achievable. FINDINGS: LOWER THORAX: Normal. HEPATOBILIARY: Postoperative changes of the right liver and cholecystectomy. The common bile duct is dilated to 11 mm. Mild right intrahepatic biliary ductal dilation. These are both unchanged compared to 08/20/2019. No new focal liver lesion. SPLEEN: No splenomegaly. PANCREAS: No focal masses or ductal dilatation. ADRENALS: No adrenal nodules. KIDNEYS/URETERS: Unchanged 2.4 cm posterior left midpole renal cyst. No hydronephrosis or renal calculi. PELVIC ORGANS/BLADDER: Unremarkable. PERITONEUM / RETROPERITONEUM: No free air or fluid. LYMPH NODES: Left inguinal lymphadenopathy measures up to 3.4 x 1.6 cm, increased from 4.3 x 1.9 cm previously. The previously described right and left pelvic sidewall lymph nodes and right perirectal lymph node have also decreased in size but remain present. No new lymphadenopathy. VESSELS: Unremarkable. GI TRACT: Nodular rectal wall thickening, less prominent compared to 08/20/2019. No new wall thickening or intraluminal mass lesion. Diverticulosis without CT evidence of diverticulitis. Normal appendix BONES AND SOFT TISSUES: No acute osseous injury. No suspicious lytic or blastic lesions. Prominent degenerative changes of the lower lumbar spine. Grade 2 anterolisthesis at L5-S1 with associated bilateral L5 pars interarticularis defects. IMPRESSION: Interval decrease in extent of persistent nodular rectal wall thickening as well as perirectal and pelvic sidewall and left inguinal lymphadenopathy. Findings consistent with provided history of metastatic rectal cancer. Signed by: Rm Ellis MD on 11/13/2019 3:06 PM
== END ==
LOC: CT 08:17
PROVIDERS: ATTEND Internal Medicine Hematology & Oncology
DX: C20 Malignant neoplasm of rectum (principal)
CPT/HCPCS: 36415; 74177; 82565; 84520; Q9967